=== PATIENT | male | born 1965 | race American Indian/Alaskan Native ===

== ENCOUNTER 2017-08-19 11:09 | Emergency (ER) | payer SELFPAY ==
[2017-08-19] MEDS ORDERED: MOTRIN PO ONE (19:03)
[2017-08-19] MEDS ORDERED: FLEXERIL PO ONE (19:04)
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
[2017-08-20 06:14] VITALS: BP 130/94
== END 2017-08-19 19:50 | disposition home or self-care (01) ==
LOC: ED 11:09
DX: M54.5 Low back pain (principal); I10 Essential (primary) hypertension; F17.200 Nicotine dependence, unspecified, uncomplicated; V89.2XXA Person injured in unspecified motor-vehicle accident, traffic, initial encounter; Y93.89 Activity, other specified; Y92.89 Other specified places as the place of occurrence of the external cause; Y99.8 Other external cause status
CPT/HCPCS: 72100; 99283

== ENCOUNTER 2021-07-29 01:05 | Emergency (ER) | payer SELFPAY ==
[2021-07-29] MEDS ORDERED: SODIUM CHLORIDE 0.9% 1000 ML 1,000 ML IV ONE (02:33)
[2021-07-29] MEDS ORDERED: MORPHINE 4 MG/1 ML INJ IV ONE (02:35)
[2021-07-29] MEDS ORDERED: ONDANSETRON 4 MG/2 ML INJ IV ONE (02:36)
--- NOTE | 2021-07-29 02:39 | Emergency Department Report ---
HPI - General Chief Complaint: High BP Time Seen by Provider: 07/29/21 02:16 - HPI HPI: 56-year-old male with history of HIV off antiretroviral therapy for the past 4 months as well as hypertension off of all medications for the same period of time due to homelessness presents complaining of 1 day of several symptoms including severe headache, sore throat with difficulty swallowing and spitting up constantly. He also was noted to have severely elevated blood pressure of 200s systolic. The patient says that he feels as if he has swelling in his thr oat which is preventing him from swallowing. He also reports generalized headache and subjective fever. While speaking with the patient he reports that he developed chest pain which is new. He denies any associated nausea/vomiting, shortness of breath, cough, abdominal pain, focal weakness, sensory changes, vision changes, neck pain, or any other complaints. ED Past Medical Hx - Past Medical History Hx Hypertension: Yes Hx HIV: Yes Additional medical history: HIV - Surgical History Past Surgical History?: No Additional Surgical History: fluid removal from right testicle - Social History Smoking Status: Current Every Day Smoker Substance Use Type: Alcohol - Medications Home Medications: Home Medications Medication Instructions Recorded Confirmed Last Taken Type Ibuprofen [Motrin 800 MG tab] 800 mg PO TID PRN #10 tablet 04/19/13 Unknown Rx Sulfamethoxazole/Trimethoprim 1 each PO BID #20 tablet 04/19/13 Unknown Rx [Bactrim DS] Amoxicillin [Trimox CAP] 500 mg PO Q8H #40 capsule 07/29/14 Unknown Rx Fluticasone Propionate [Flonase] 2 sprays NS QDAY #1 bottle 07/29/14 Unknown Rx Promethazine /Codeine 5 ml PO Q6H PRN #150 udc 07/29/14 Unknown Rx [Phenergan/Codeine 6.25-10 mg/5 ml] Cyclobenzaprine [Flexeril] 10 mg PO TID PRN #12 tablet 08/19/17 Unknown Rx Naproxen 500 mg PO BID PRN #30 tablet 08/19/17 Unknown Rx ED Review of Systems ROS: Stated complaint: hypertension Other details as noted in HPI Comment: All other systems reviewed and negative Constitutional: fever (subj), malaise Eyes: denies: eye pain, vision change ENT: throat pain, other (spitting up mucus). denies: ear pain, congestion Respiratory: cough. denies: shortness of breath Cardiovascular: chest pain. denies: palpitations, syncope Gastrointestinal: denies: abdominal pain, nausea, vomiting Genitourinary: denies: dysuria, frequency, hematuria Musculoskeletal: denies: back pain, arthralgia Skin: denies: rash, lesions Neurological: headache. denies: weakness, numbness, paresthesias Hematological/Lymphatic: denies: easy bleeding Physical Exam - Physical Exam Vital Signs: Vital Signs 07/29/21 01:05 Temperature 98.9 F Pulse Rate 104 H Respiratory 20 Rate Blood Pressure 203/123 [Left] O2 Sat by Pulse 97 Oximetry Physical Exam: GENERAL: Well developed and well nourished. No acute distress HEAD: Normocephalic. No obvious signs of trauma. ENT: Very dry mucous membranes. Posterior pharynx appears within normal limits. There is no tonsillar hypertrophy or exudates although there is a tonsil stone visible. There is no elevation of the floor of the mouth. There is very mild swelling which is tender in the right submandibular region unclear whether this represents lymphadenopathy. Patient is actively spitting up secretions and mucous during the exam. EYES: Extraocular movements are intact. Pupils are equal round and reactive to light bilaterally NECK: Supple. Full ROM is intact. Trachea is midline. LUNGS: Nonlabored breathing. Equal chest rise bilaterally. Coarse breath sounds throughout without discernible rales or wheezes. CARDIOVASCULAR: Regular rate and rhythm. No murmurs or rubs. VASCULAR: Cap refill < 2 seconds. 3+ pitting edema of the right lower extremity. 2+ pitting edema of the left lower extremity. ABDOMEN: Abdomen is soft and nondistended. There is no significant tenderness, guarding or rebound. SKIN: Skin is warm and dry NEURO: Patient is awake, alert, and oriented. manager hematology II-XII grossly intact. No focal deficits. Normal motor and sensory exam throughout. Normal speech. MUSCULOSKELETAL: No obvious deformities. No significant tenderness. Normal ROM throughout. BACK/SPINE: No midline tenderness or step-offs of the C/T/L spine. No costovertebral angle tenderness. ED Course Vital Signs 07/29/21 01:05 Temperature 98.9 F Pulse Rate 104 H Respiratory 20 Rate Blood Pressure 203/123 [Left] O2 Sat by Pulse 97 Oximetry ED Medical Decision Making - Lab Data Result diagrams: 07/29/21 03:07 07/29/21 03:07 Lab Results 07/29/21 07/29/21 07/29/21 Range/Units 03:07 03:07 03:07 WBC 6.4 (4.5-11.0) K/mm3 RBC 4.64 (3.65-5.03) M/mm3 Hgb 13.8 (11.8-15.2) gm/dl Hct 42.4 (35.5-45.6) % MCV 91 (84-94) fl MCH 30 (28-32) pg MCHC 33 (32-34) % RDW 12.9 L (13.2-15.2) % Plt Count 237 (140-440) K/mm3 Lymph % (Auto) 17.2 (13.4-35.0) % Hanson % (Auto) 8.3 H (0.0-7.3) % Eos % (Auto) 0.0 (0.0-4.3) % Baso % (Auto) 0.8 (0.0-1.8) % Lymph # (Auto) 1.1 L (1.2-5.4) K/mm3 Hanson # (Auto) 0.5 (0.0-0.8) K/mm3 Eos # (Auto) 0.0 (0.0-0.4) K/mm3 Baso # (Auto) 0.0 (0.0-0.1) K/mm3 Seg Neutrophils % 73.7 H (40.0-70.0) % Seg Neutrophils # 4.7 (1.8-7.7) K/mm3 PT 13.2 (12.2-14.9) Sec. INR 0.90 (0.87-1.13) APTT 32.9 (24.2-36.6) Sec. Sodium (137-145) mmol/L Potassium (3.6-5.0) mmol/L Chloride (98-107) mmol/L Carbon Dioxide (22-30) mmol/L Anion Gap mmol/L BUN (9-20) mg/dL Creatinine (0.8-1.3) mg/dL Estimated GFR ml/min BUN/Creatinine Ratio % Glucose (75-100) mg/dL Lactic Acid 1.40 (0.7-2.0) mmol/L Calcium (8.4-10.2) mg/dL Magnesium (1.7-2.3) mg/dL Troponin T (0.00-0.029) ng/mL NT-Pro-B Natriuret Pep (0-900) pg/mL 07/29/21 07/29/21 07/29/21 Range/Units 03:07 05:24 05:24 WBC (4.5-11.0) K/mm3 RBC (3.65-5.03) M/mm3 Hgb (11.8-15.2) gm/dl Hct (35.5-45.6) % MCV (84-94) fl MCH (28-32) pg MCHC (32-34) % RDW (13.2-15.2) % Plt Count (140-440) K/mm3 Lymph % (Auto) (13.4-35.0) % Hanson % (Auto) (0.0-7.3) % Eos % (Auto) (0.0-4.3) % Baso % (Auto) (0.0-1.8) % Lymph # (Auto) (1.2-5.4) K/mm3 Hanson # (Auto) (0.0-0.8) K/mm3 Eos # (Auto) (0.0-0.4) K/mm3 Baso # (Auto) (0.0-0.1) K/mm3 Seg Neutrophils % (40.0-70.0) % Seg Neutrophils # (1.8-7.7) K/mm3 PT (12.2-14.9) Sec. INR (0.87-1.13) APTT (24.2-36.6) Sec. Sodium 136 L (137-145) mmol/L Potassium 3.8 (3.6-5.0) mmol/L Chloride 99.4 (98-107) mmol/L Carbon Dioxide 23 (22-30) mmol/L Anion Gap 17 mmol/L BUN 10 (9-20) mg/dL Creatinine 1.4 H (0.8-1.3) mg/dL Estimated GFR > 60 ml/min BUN/Creatinine Ratio 7 % Glucose 94 (75-100) mg/dL Lactic Acid 1.10 (0.7-2.0) mmol/L Calcium 9.1 (8.4-10.2) mg/dL Magnesium 2.00 (1.7-2.3) mg/dL Troponin T < 0.010 < 0.010 (0.00-0.029) ng/mL NT-Pro-B Natriuret Pep 102.5 (0-900) pg/mL - Radiology Data Radiology results: report reviewed - Medical Decision Making 56-year-old male with hypertension not on prescribed medication and HIV not on antiretroviral therapy presents complaining of 1 day of headache and sore throat with difficulty swallowing and spitting up secretions. Also reports subjective fever and cough. In triage she was noted to be severely hypertensive with blood pressure of 203/123 with mildly elevated heart rate of 104. During the interview/examination, patient reported mid substernal chest pain. On physical examination he has very dry mucous membranes. The posterior pharynx appears within normal limits without edema, erythema, tonsillar hypertrophy or exudates. There is no elevation of the floor the mouth. However, there is an area of tender swelling in the right submandibular area of unclear etiology. Lung sounds are coarse throughout. He has 3+ edema of the right lower extremity 2+ edema of the left lower extremity. We will perform broad work-up with a full set of labs and cultures, chest x-ray, and IV contrasted CT of the neck to assess for evidence of deep space infection, abscess, or other abnormality to explain the patient's presentation. Patient's initial EKG was nonischemic. Given that he reported chest pain repeat EKG was performed and is unchanged. We will give 1 L of IV fluids, aspirin, morphine, Zofran, and reassess. Chest x-ray reveals findings of interstitial infiltrates thought to represent edema. Nonetheless, given his history for better clarification I will add on CT of the chest to assess for evidence of pneumonia. Labs reveal no significant leukocytosis or anemia. Creatinine is slightly elevated at 1.4 from unknown baseline. There are no significant electrolyte abnormalities. Lactic acid is negative. Troponin is negative. BNP is negative. On repeat assessment, the patient is no longer spitting up and reports pain much improved. However his blood pressure remains significantly elevated in the 180s systolic. I have therefore ordered 10 mg of IV labetalol. CT of the chest reveals no acute abnormalities although there is incidental finding of a 2 cm right thyroid nodule. CT of the neck shows right soft tissue swelling in the hypopharynx of unclear etiology. Given concern that this might represent epiglottitis versus supraglottitis and we do not have ENT invoice control clerk at this hospital we will attempt to transfer the patient to hospital with ENT available. In the meantime I have ordered 10 mg of IV Decadron and broad-spectrum IV vancomycin and cefepime. I spoke with Dr. Maldonado of ENT from [place]. She agrees that this likely represents supraglottitis versus epiglottitis and agrees with need for transfer but they do not have any available beds. I spoke with Dr. Bales from [facility] in [place] regarding the case and he accepts the patient as a transfer as an ER to ER transfer. Critical Care Time: Yes Critical care time in (mins) excluding proc time.: 40 Critical care attestation.: If time is entered above; I have spent that time in minutes in the direct care of this critically ill patient, excluding procedure time. Critical care time was spent in the evaluation/assessment, work-up and ma nagement of hypertensive emergency and epiglottitis requiring consultation with specialist and IV steroids, IV antibiotics, as well as frequent evaluation and reassessment. ED Disposition Clinical Impression: HIV (human immunodeficiency virus infection), Supraglottitis, Hypertensive urgency, Chest pain, EDUARDO (acute kidney injury) Disposition: 02 SHORT TERM HOSPITAL Is pt being admited?: No Referrals: PRIMARY CARE, [Primary Care Provider] - 3-5 Days HEART Score - HEART Score History: Moderately suspicious EKG: Non-specific Age: 45-65 Risk factors: 1-2 risk factors Troponin: Troponin T < 0.010 ng/mL (0.00-0.029) 07/29/21 03:07 Troponin: < normal limit HEART Score: 4
[2021-07-29] MEDS: ASPIRIN EC 325 MG TAB PO ONE (03:04)
--- NOTE | 2021-07-29 03:11 | XRay Report ---
CHEST 1 VIEW 07/29/2021 2:05 AM INDICATION / CLINICAL INFORMATION: Sepsis, chest pain. COMPARISON: None available. FINDINGS: SUPPORT DEVICES: None. HEART / MEDIASTINUM: No significant abnormality. LUNGS / PLEURA: There are generalized bilateral interstitial opacities. Lung volumes are mildly reduc ed. No significant pleural effusion. No pneumothorax. ADDITIONAL FINDINGS: No significant additional findings. IMPRESSION: Probable interstitial edema without other acute findings. Signer Name: Amrit Tatum MD Signed: 07/29/2021 3:07 AM Workstation Name: [id number]
[2021-07-29 03:26] LABS: Basophils % (Auto) 0.8 % (0.0-1.8); Hematocrit 42.4 % (35.5-45.6); Hemoglobin 13.8 gm/dl (11.8-15.2); Lymphocytes # (Auto) 1.1 K/mm3 (1.2-5.4); Lymphocytes % (Auto) 17.2 % (13.4-35.0); Mean Corpuscular HGB Conc 33 % (32-34); Mean Corpuscular Volume 91 fl (84-94); Monocytes # (Auto) 0.5 K/mm3 (0.0-0.8); Monocytes % (Auto) 8.3 % (0.0-7.3); Platelet Count 237 K/mm3 (140-440); Red Blood Count 4.64 M/mm3 (3.65-5.03); Red Cell Distribution Width 12.9 % (13.2-15.2)
[2021-07-29 03:36] LABS: INR 0.9 (0.87-1.13)
[2021-07-29 03:37] LABS: Partial Thromboplastin Time 32.9 Sec. (24.2-36.6)
[2021-07-29 03:45] LABS: BUN/Creatinine Ratio 7; Blood Urea Nitrogen 10 mg/dL (9-20); Calcium 9.1 mg/dL (8.4-10.2); Hemolysis Index 5
--- NOTE | 2021-07-29 05:09 | Cat Scan Report ---
CT CHEST WITH CONTRAST INDICATION / CLINICAL INFORMATION: Follow-up of abnormal chest x-ray demonstrating bilateral interstitial opacities. TECHNIQUE: Axial CT images were obtained through the chest after 100 cc Omnipaque [address] scans at this location are performed using CT dose reduction for ALARA by means of automated exposure contr ol. COMPARISON: One view of the chest from earlier today. FINDINGS: HEART: No significant abnormality. VASCULATURE: No acute findings. There is mild coronary atherosclerosis. LYMPH NODES: No significant adenopathy. TRACHEA AND BRONCHI:No significant abnormality. LUNGS: There is mild dependent bilateral atelectasis with otherwise clear lungs. No significant pleur al effusion. No pneumothorax. UPPER ABDOMEN: No significant abnormality. BONES: There are mild degenerative changes of the spine without acute findings. ADDITIONAL FINDINGS: There is a 2.1 cm heterogeneous lower pole right thyroid nodule on image 14 of s eries 2. IMPRESSION: 1. No acute findings. 2. Incidental right thyroid nodule measuring up to 2.1 cm. A nonemergent thyroid ultrasound is recomm ended for further evaluation. 3. Additional findings as above. Signer Name: Amrit Tatum MD Signed: 07/29/2021 5:05 AM Workstation Name: [id number]
--- NOTE | 2021-07-29 05:26 | Cat Scan Report ---
CT neck w con INDICATION / CLINICAL INFORMATION: 56 years Male; Submandibular tenderness, spitting up, assess for abscess. TECHNIQUE: Contiguous thin cut axial images obtained through the neck following IV contrast. Sagittal and zayas l reconstructions performed by the technologist. All CT scans at this location are performed using CT dose reduction for ALARA by means of automated exposure control. COMPARISON: None available. FINDINGS: There appears to be right lateral/posterolateral mucosal/submucosal wall swelling in the hy popharynx. There is swelling of the aryepiglottic fold on the right, although the epiglottis appears to be essentially within normal limits,. Mild edema is seen in the adjacent soft tissues in this giuliano on. No focal fluid collection is seen to suggest abscess. More superiorly, the parapharyngeal space is normal in appearance, bilaterally. No significant fluid seen in the retropharyngeal space. MUCOSAL SPACE: Prominent soft tissue is seen in the roof the nasopharynx, presumably related to react bonnie adenoidal tissue. Please clinically correlate. Otherwise, the nasopharynx, oropharynx and vallecula, oral cavity and floor of mouth, hypopharynx, an d larynx are grossly normal. LYMPH NODES: Mildly prominent lymph nodes seen bilaterally, presumably reactive. No evidence of suppu rative node. SALIVARY GLANDS: Parotid, submandibular, and visualized sublingual glands are within normal limits. THYROID GLAND: Well-circumscribed, but heterogeneous nodule is seen in the inferior aspect of the rig ht thyroid lobe, measuring 2.4 cm in maximum. PARANASAL SINUSES: Small air-fluid level seen in the left maxillary antrum, along with mild to modera te mucosal thickening. Near-complete opacification of the right maxillary antrum is noted, with small air-fluid level as well. Mild to moderate mucosal thickening seen in the ethmoids-right greater than left. SPINE: No significant abnormality of the cervical spine appreciated. VASCULAR STRUCTURES: Vascular structures are grossly normal in appearance. Mild atherosclerotic disea se is seen in the carotid bifurcation region on the right-no significant narrowing appreciated. ADDITIONAL FINDINGS: Surrounding soft tissues are otherwise grossly normal. IMPRESSION: 1. Swelling in the right posterolateral hypopharyngeal region, as described above. No definitive sign s of abscess appreciated. Presumed, reactive edema seen in the adjacent soft tissues. Presumed reacti ve adenopathy noted, as well. 2. Sinus disease, as described above. 3. Right thyroid lobe nodule. Please see below. INCIDENTAL THYROID NODULE RECOMMENDATION RECOMMENDATION: Dedicated thyroid ultrasound. Nonpalpable nodules detected on US or other anatomic imaging studies are termed incidentally discover ed nodules or incidentalomas. Nonpalpable nodules have the same risk of malignancy as palpable nodule s with the same size. Generally, only nodules >1 cm should be evaluated, since they have a greater po tential to be clinically significant cancers. (CHANCE, 2009). Follow up for incidental thyroid nodules <1 cm is not recommended. Diagnostic thyroid ultrasound is recommended only if the patient meets the following criteria: (1) < 35 years of age with normal life expectancy and nodule >= 1 cm. (2) >= 35 years of age with normal life expectancy and nodule >= 1.5 cm. ACR Ultrasound for incidental thyroid nodules: [email or web address] Signer Name: Puneet Rosales MD, III Signed: 07/29/2021 5:22 AM Workstation Name: [place]
[2021-07-29] MEDS ORDERED: hydrALAZINE 20 MG/1 ML INJ IV ONE (05:35)
[2021-07-29] MEDS ORDERED: methylPREDNISolone Sod Succinate 125 MG/2 ML INJ IV ONE (05:54)
[2021-07-29] MEDS ORDERED: dexAMETHasone 20 MG/5 ML VIAL IV ONE (06:09)
[2021-07-29] MEDS ORDERED: VANCOMYCIN 1,250 MG in SODIUM CHLORIDE 0.9% 500 ML 500 ML IV ONE (06:10)
[2021-07-29] MEDS ORDERED: CEFEPIME/NS 2 GM/100 ML 2 GM/100 ML BAG IV ONE (06:10)
[2021-07-29] MEDS ORDERED: VANCOMYCIN 1,250 MG in SODIUM CHLORIDE 0.9% 250ML 250 ML IV ONE (06:15)
[2021-07-29] MEDS ORDERED: CEFEPIME/NS 2 GM/100 ML 2 GM/100 ML BAG IV SCH ×2 (08:00)
[2021-07-29 08:02] VITALS: BP 170/102
[2021-07-29 08:17] LABS: Bilirubin,Urine NEG (Negative); Blood,Urine SM (Negative); Color,Urine Yellow (Yellow); Mucus,Urine FEW /HPF; RBC,Urine < 1.0 /HPF (0.0-6.0); Urobilinogen,Urine < 2.0 mg/dL (<2.0)
--- NOTE | 2021-08-01 10:36 | Electrocardiograph Report ---
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
--- NOTE | 2021-08-01 10:36 | Electrocardiograph Report ---
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
== END 2021-07-29 10:14 | disposition short-term general hospital (02) ==
LOC: ED 01:05
DX: J04.30 Supraglottitis, unspecified, without obstruction (principal); I16.0 Hypertensive urgency; N17.9 Acute kidney failure, unspecified; F17.200 Nicotine dependence, unspecified, uncomplicated; Z72.89 Other problems related to lifestyle; Z21 Asymptomatic human immunodeficiency virus [HIV] infection status
CPT/HCPCS: 36415; 70491; 71045; 71260; 80048; 81001; 82140; 83735; 83880; 84484; 85025; 85610; 85730; 87040; 87086; 93005; 96361; 96365; 96366; 96368; 96375; 99291; J0360; J0692; J1100; J2270; J2405; J3370; J3490; J7030; J7050; Q9967; 99285; Q0162